=== PATIENT | female | born 1980 | race Caucasian/White ===

== ENCOUNTER 2018-10-11 13:43 | Outpatient (CLI) | payer BC, SELFPAY ==
[2018-10-11 14:25] LABS: HCT 40.7 % (36.0-46.0); HGB 13.9 g/dL (12.0-15.5)
[2018-10-11 14:45] LABS: TSH (W/Ref FT4) 1.36 uIU/mL (0.358-3.74)
== END 2018-10-11 14:03 ==
PROVIDERS: PCP Family Medicine; Visit Provider Nurse Practitioner Family
DX: D35.2 Benign neoplasm of pituitary gland (principal); N93.9 Abnormal uterine and vaginal bleeding, unspecified
CPT/HCPCS: 36415; 84146; 84443; 85014; 85018

== ENCOUNTER 2018-10-25 00:44 | Outpatient (CLI) | payer BC, SELFPAY ==
--- NOTE | 2018-10-25 12:45 | DI.US_ITS ---
SYMPTOMS/DIAGNOSIS: ABNORMAL BLEEDING, N93.9 PELVIC ULTRASOUND: Pelvic ultrasound was performed transabdominally and transvaginally. Please see the accompanying data sheet for measurements of pelvic structures. The uterus is unremarkable in appearance except for a presumed lower uterine segment C- section scar. Endometrial stripe is about 9 mm in thickness. The ovaries have a normal follicular appearance. No free fluid identified in the cul-de-sac. Limited scanning of the kidneys is unremarkable. CONCLUSION: Negative pelvic ultrasound.
== END 2018-10-25 01:04 ==
PROVIDERS: PCP Family Medicine; Visit Provider Nurse Practitioner Family
DX: N93.9 Abnormal uterine and vaginal bleeding, unspecified (principal)
CPT/HCPCS: 76830; 76856

== ENCOUNTER 2019-03-14 13:33 | Outpatient (REF) | payer BC, SELFPAY ==
[2019-03-14 19:34] LABS: Abs Immature Grans 0.02 k/cumm (0.0-0.09); Absolute Basophil Count 0.01 k/cumm (0.0-0.2); Absolute Eosinophil Count 0.01 k/cumm (0.0-0.7); Absolute Lymphocyte Count 0.85 k/cumm (1.2-3.4); Absolute Monocyte Count 0.53 k/cumm (0.11-0.7); Absolute Neutrophil Count 5.07 k/cumm (1.2-6.7); Basophils % 0.2; Eosinophils % 0.2; HGB 13.8 g/dL (12.0-15.5); Immature Grans % 0.3; Lymphocytes % 13.1; Mean Corp. HGB Concentration 35.4 g/dL (32.0-36.0); Mean Corpuscular Volume 87.6 fL (80-95); Mean Platelet Volume 11.4 fL (8.0-11.0); Monocytes % 8.2; Platelet Count 208 x1000/uL (130-400); RBC 4.45 m/cumm (4.00-5.20); RBC Distribution Width 11.6 % (11.7-14.6); White Blood Cell Count 6.49 k/cumm (4.4-10.8)
[2019-03-14 19:44] LABS: C-Reactive Protein 0.83 mg/dL (0.0-0.3)
[2019-03-14 20:29] LABS: ESR 19 mm/hr (0-20)
[2019-03-17 22:26] LABS: Anaplasma phagocytophilum Negative (Negative); B. miyamotoi PCR Negative (Negative); Babesia divergens/MO-1 Negative (Negative); Babesia duncani Negative (Negative); Babesia microti Negative (Negative); Ehrlichia chaffeensis Negative (Negative); Ehrlichia ewingii/canis Negative (Negative); Ehrlichia muris eauclairensis Negative (Negative)
[2019-03-18 11:56] LABS: Lyme Ab w Rflx to Lyme Confirm Negative
[2019-03-18 12:06] LABS: CMV IgG Antibody Negative
== END 2019-03-14 13:53 ==
LOC: NCHCN 13:33
PROVIDERS: PCP Family Medicine; Visit Provider Family Medicine
DX: R53.83 Other fatigue (principal); R61 Generalized hyperhidrosis
CPT/HCPCS: 85652; 87798; 85025; 86140; 86618; 86644

== ENCOUNTER 2019-03-22 08:20 | Emergency (ER) | payer BC, SELFPAY ==
--- NOTE | 2019-03-22 08:33 | ED.GENADUL_ITS ---
Discharge Plan Disposition Patient Disposition: HOME Condition: Stable Discharge Details Chief Complaint: Orthopedic Clinical Impression: Right wrist sprain Primary Care Provider: Rachel Omalley V ED Provider: Dolores Vital Home Meds and New Rx's Prescriptions: Continued Calamine Clear 1-0.1 % Lotion TOPICAL RF: 0 Discharge Instructions Instructions: Wrist Sprain (ED) Additional Instructions: Rest, ice, elevate right wrist as much as possible. Alternate Tylenol and Motrin as needed directed for pain. Follow-up with your primary care doctor for repeat evaluation and repeat x-rays if symptoms persist or worsen. Return to the emergency department if you develop any worsening or new concerning symptoms. Discharge Data Discharge Physician: Dolores Vital Medical Decision Making 38-year-old female presents with right wrist pain that started 5 days ago when she awoke in the morning after a weekend of lifting heavy rocks. Denies any known injury. Has not taken any medication for pain. Some tenderness palpation along the ulnar aspect of distal wrist, minimal right snuffbox tenderness, neurovascularly intact, no bony deformity. Patient declines ibuprofen here. X-ray negative for fracture. Discussed with patient that as she had no severe mechanism, and only minimal right snuffbox tenderness, do not suspect a scaphoid fracture. Patient placed in a universal wrist splint. She is advised on the importance of rest, ice, elevate, alternating Tylenol and Motrin. She is advised to follow-up with her primary care doctor for reevaluation and for referral for repeat x-rays if needed and to return here with any concerns. Medical Records Medical records reviewed: Yes I reviewed the patient's medical records. Imaging Data Radiologic Study: Radiologist's impression: RIGHT WRIST: No fracture or dislocation is seen. IMPRESSION: Negative right wrist. HPI General Mode of arrival: ambulatory . Date/Time Provider Initiated Documentation: 03/22/19 08:32 . Limitations to Documentation: no limitations . Information obtained by: patient . HPI Narrative: Patient is a 38-year-old female presents with right wrist pain for the past 5 days. She states she awoke with the pain 5 days ago after a full weekend of lifting and carrying heavy rocks. She states the pain is along the ulnar aspect. Pain worse with supination and pronation. She denies any known specific injury. She has not taken any medication for pain. She denies any pain in her forearm, elbow or s houlder. Related Data Home Medications Medication Instructions Recorded Confirmed Calamine Clear applic TOPICAL 03/22/19 Allergies Allergy/AdvReac Type Severity Reaction Status Date / Time No Known Allergies Allergy Verified 03/22/19 08:53 Review of Systems Review of Systems ROS Unobtainable: All systems reviewed & are unremarkable except as noted in HPI and below PFSH Medical History Contraception (Acute 04/30/15) Family history of ovarian cancer (Acute) Mother Pituitary adenoma (Acute 04/30/15) Followed by her PCP with MRI - 2014 decreasing in size Family History Mother Ovarian cancer dx at 35 Father Prostate cancer Maternal Uncle Prostate cancer Paternal Maternal Aunt Colon cancer Social History Smoking/Tobacco Use Status: Never Drug use: Never current occupation: [employer] Insurance Do you feel safe at home: Yes Do you feel safe in your relationship?: Yes Female Reproductive History Menstrual control method: other (Withdrawal as BC) History History 3 Para 2 Hx # Term Pregnancies Multiple births Hx # Pregnancies Ectopic pregnancies AB induced Hx Number of Living Children AB spontaneous Exam Const General: cooperative, healthy appearing and no acute distress HENMT Head: normal to inspection Mouth: oral mucosae normal Eyes General: appearance normal, both eyes and all related structures Neck Neck: normal visual inspection Resp Effort & Inspection: normal respiratory effort and able to speak in complete sentences Cardio Rate: regular rate Skin General skin exam: no rashes or lesions noted Neuro General: alert, awake and oriented x3 Motor: muscle tone normal throughout Extrem Other: Tenderness to palpation along ulnar aspect of distal right wrist. Pain with supination and pronation. Very minimal right snuffbox tenderness. No tenderness palpation overlying right distal radius. No pain with extension and flexion. Right radial and ulnar pulses intact. Cap refill less than 2 seconds. No bony deformity, ecchymosis, edema or erythema. Psych Appearance: grossly normal Affect: normal affect
[2019-03-22 08:48] VITALS: BP 103/49; PULSE 98; TEMP 37.1
--- NOTE | 2019-03-22 09:19 | DI.RAD_ITS ---
SYMPTOM/DIAGNOSIS: S/P FREQUENT LIFTING/'POPPING' SENSATION, R/O FX RIGHT WRIST: No fracture or dislocation is seen. IMPRESSION: Negative right wrist.
== END 2019-03-22 09:42 | disposition home or self-care (01) ==
PROVIDERS: Emergency Provider Physician Assistant; PCP Family Medicine
DX: S63.501A Unspecified sprain of right wrist, initial encounter (principal); X50.0XXA Overexertion from strenuous movement or load, initial encounter
CPT/HCPCS: 29125; 99283; 73110; L3908

== ENCOUNTER 2019-04-04 00:44 | Outpatient (CLI) | payer BC, SELFPAY ==
--- NOTE | 2019-04-04 13:47 | DI.MAMMO_ITS ---
EXAM: MG MAMMO DIAGNOSTIC BI AND US BREAST RT LIMITED CLINICAL HISTORY: RT BREAST LUMP, N63.0. TECHNIQUE: Mammograms were interpreted according to the usual protocol including computer analysis w [employer] CAD system, tomosynthesis and C-view imaging. Ultrasound performed using standard protocol. COMPARISON: Previous examination of May 2015 FINDINGS: Bilateral mammogram and right breast ultrasound are interpreted in conjunction. These examinations w ere obtained to evaluate questionable area of palpable abnormality of the axillary portion of the rig ht breast. The breasts are heterogeneously dense. No dominant mass or clumped microcalcification id entified in either breast. Current examination is compared with previous examination of May and there has been no gross interval change in appearance since that time. Breast ultrasound was p erformed for evaluation of a questionable palpable area of abnormality and shows a nodule in the subc utaneous tissues of the right axillary region, probably a lymph node, measuring about 8 millimeters i n diameter. No intramammary mass or cyst identified ultrasonographically. IMPRESSION: No specific evidence of malignancy at this time. Negative mammogram and ultrasound do not entirely ex clude the possibility of malignancy and should not preclude biopsy of any clinically suspicious palpa ble breast mass. Category 1, breast density category C Routine screening examinations suggested at yearly intervals beginning at age 40 according to the ACS /ACR guidelines. BI-RADS Cat 1 - Negative Breast Density - Category C - Heterogeneously dense
== END 2019-04-04 01:04 ==
PROVIDERS: PCP Family Medicine; Visit Provider Family Medicine
DX: N63.31 Unspecified lump in axillary tail of the right breast (principal); R59.0 Localized enlarged lymph nodes
CPT/HCPCS: 76642; 77062; 77066; G0279

== ENCOUNTER 2019-08-16 11:26 | Outpatient (CLI) | payer BC, SELFPAY ==
[2019-08-16 12:05] LABS: HCT 41.3 % (36.0-46.0); HGB 14.4 g/dL (12.0-15.5); Mean Corp. HGB Concentration 34.9 g/dL (32.0-36.0); Mean Corpuscular Hemoglobin 30.5 pg (27.0-33.0); Mean Corpuscular Volume 87.5 fL (80-95); Mean Platelet Volume 10.5 fL (8.0-11.0); Platelet Count 290 x1000/uL (130-400); RBC 4.72 m/cumm (4.00-5.20); RBC Distribution Width 12.3 % (11.7-14.6); White Blood Cell Count 7.85 k/cumm (4.4-10.8)
[2019-08-16 12:54] LABS: Anion Gap 11.1 mmol/L (3-11); BUN 10 mg/dL (7-18); C-Reactive Protein 0.07 mg/dL (0.0-0.3); CO2 26.9 mmol/L (21.0-32.0); Calcium 9.2 mg/dL (8.5-10.1); Chloride 103 mmol/L (98-107); Glucose 73 mg/dL (74-106); Magnesium 1.7 mg/dL (1.8-2.4); Potassium 3.8 mmol/L (3.5-5.1); Sodium 141 mmol/L (136-145)
[2019-08-16 13:38] LABS: ESR 7 mm/hr (0-20)
[2019-08-19 15:14] LABS: ANA Interpretation Negative (Negative)
== END 2019-08-16 11:46 ==
PROVIDERS: PCP Family Medicine; Visit Provider Family Medicine
DX: R53.83 Other fatigue (principal); R61 Generalized hyperhidrosis; E87.6 Hypokalemia; M79.10 Myalgia, unspecified site
CPT/HCPCS: 36415; 80048; 85027; 85652; 83735; 86038; 86140; 86431

== ENCOUNTER 2020-05-15 09:45 | Outpatient (REF) | payer SELFPAY ==
[2020-05-23 05:27] LABS: Histamine, Whole Blood 411 nmol/L (180-1800)
== END 2020-05-15 10:05 ==
LOC: NCHCN 09:45
PROVIDERS: PCP Family Medicine; Visit Provider Family Medicine
DX: R53.83 Other fatigue (principal)
CPT/HCPCS: 83088